=== PATIENT | female | born 1990 | race Caucasian/White ===

== ENCOUNTER 2016-08-16 17:50 | Emergency (ER) | payer MEDICAID ==
[~2016-08-16] VITALS: Ht 165.1 cm; Wt 120.0 kg
[2016-08-16] MEDS ORDERED: METF500T4 PO (17:54)
[2016-08-16 19:30] VITALS: BP 112/62
== END 2016-08-16 20:04 | disposition home or self-care (01) ==
LOC: ER 17:51
DX: G51.0 Bell's palsy (principal); E11.9 Type 2 diabetes mellitus without complications
CPT/HCPCS: 99283